=== PATIENT | female | born 1980 ===

== ENCOUNTER → 2018-02-10 18:08 | Outpatient (REF) | payer SELFPAY ==
[2018-02-14 13:50] LABS: QuantiFERON TB NEGATIVE (Negative)
[2018-02-15 13:14] LABS: Rapid Plasma Reagin NON-REACTIVE
== END ==
LOC: LAB 18:08
PROVIDERS: Visit Provider Family Medicine Adult Medicine
DX: Z00.00 Encounter for general adult medical examination without abnormal findings (principal)
CPT/HCPCS: 86480; 86592; 87591